=== PATIENT | male | born 1945 | race Asian ===

== ENCOUNTER 2025-05-23 14:07 | Inpatient (IN) | payer MEDICARE, OTHER ==
[~2025-05-23] VITALS: Ht 175.3 cm; Wt 63.0 kg
[2025-05-23 14:35] LABS: COVID AG,FIA SOURCE NPH
[2025-05-23 14:56] LABS: APPEARANCE,URINE CLEAR (CLEAR); GLUCOSE, URINE (UA) NEGATIVE (NEGATIVE); LEUKOCYTE ESTERASE ,URINE NEGATIVE (NEGATIVE); NITRATE,URINE NEGATIVE (NEGATIVE); OCCULT BLOOD,URINE TRACE (NEGATIVE); PH,URINE DRUG SCREEN 6.5 (5.0-8.0); SPECIFIC GRAVITIY, URINE 1.018 (1.003-1.030)
[2025-05-23 14:59] LABS: PLATELET COUNT (AUTO) 246 K/uL (150-450); RED BLOOD CELL COUNT(AUTO) 4.72 MIL/uL (4.50-5.90); RED CELL DISTRIBUTION WIDTH 14.7 % (11.5-14.5); WHITE BLOOD COUNT (AUTO) 6.9 K/uL (4.5-11.0)
[2025-05-23 15:02] LABS: AMPHET/METH SCREEN,URINE NEGATIVE (NEGATIVE); BARBITURATE SCREEN, URINE NEGATIVE (NEGATIVE); CANNABINOID SCREEN,URINE NEGATIVE (NEGATIVE); COCAINE SCREEN,URINE NEGATIVE (NEGATIVE); METHADONE SCREEN, URINE NEGATIVE (NEGATIVE)
[2025-05-23 15:05] LABS: ALCOHOL, URINE DRUG SCREEN NEGATIVE (NEGATIVE)
[2025-05-23 15:08] LABS: CALCIUM, TOTAL 8.9 mg/dL (8.8-10.5); CREATININE 1.19 mg/dL (0.60-1.30); GLOMERULAR FILTR. RATE CALC 59.0 mL/min (>60); GLUCOSE,RANDOM 96.0 mg/dL (70-110); SODIUM SERUM 141.0 mmol/L (136-145); UREA NITROGEN, BLOOD 18.0 mg/dL (7-18)
[2025-05-23 15:21] LABS: SQUAMOUS EPITHELIAL CELL,UR Few /LPF (None Seen)
[2025-05-23 15:52] LABS: SARS-COV2 (COVID) ANTIGEN,FIA Negative (Negative)
[2025-05-23] MEDS ORDERED: ZOLPIDEM TARTRATE 10 MG TABLET PO PRN (20:00)
[2025-05-24 02:34] VITALS: BP 162/88; PULSE 81; RESP 16; TEMP 98.1; O2SAT 99
[2025-05-24] MEDS ORDERED: PETROLATUM,WHITE 28 GM JELLY TP PRN (06:45)
[2025-05-24] MEDS ORDERED: MAG HYDROX/ALUMINUM HYD/SIMETH ES 30 ML SUSPENSION UDCUP PO PRN (06:45)
[2025-05-24] MEDS ORDERED: ONDANSETRON 4 MG TABLET PO PRN (06:45)
[2025-05-24] MEDS ORDERED: ACETAMINOPHEN 325 MG TABLET PO PRN (06:45)
[2025-05-24] MEDS ORDERED: LOPERAMIDE HCL 2 MG CAPSULE PO PRN (06:45)
[2025-05-24] MEDS ORDERED: ALBUTEROL SULFATE HFA 90 MCG/PUFF 8 GM INHALER IH PRN (06:45)
[2025-05-24] MEDS ORDERED: GuaiFENesin/D-METHORPHAN [SUGAR-FREE] 200-20MG/10 ML SYRUP UDCUP PO PRN (06:45)
[2025-05-24] MEDS ORDERED: IBUPROFEN 400 MG TABLET PO PRN (06:45)
[2025-05-24] MEDS: CARBIDOPA/LEVODOPA 25-100 MG TABLET PO SCH (08:19)
[2025-05-24 08:34] VITALS: BP 122/64; PULSE 54; RESP 18; TEMP 98.6; O2SAT 98
[2025-05-24 09:19] LABS: CHOL/HDL RATIO 3.2 (4.2-7.3); LDL CHOL (CALC.) 76.0 mg/dL (0-130)
[2025-05-24 11:05] VITALS: PULSE 68
[2025-05-24 20:19] VITALS: RESP 18
[2025-05-24] MEDS ORDERED: ROSUVASTATIN CALCIUM 10 MG TABLET PO SCH (21:00)
[2025-05-25 02:07] LABS: HEPATITIS C AB (EIA) Non Reactive (Non Reactive)
[2025-05-25] MEDS: ATORVASTATIN CALCIUM 40 MG TABLET PO SCH (08:40)
[2025-05-25 09:33] LABS: CHOL/HDL RATIO 3.0 (4.2-7.3); LDL CHOL (CALC.) 80.0 mg/dL (0-130)
[2025-05-25 10:18] VITALS: RESP 18
[2025-05-25 20:52] VITALS: BP 136/88; PULSE 76; RESP 18; TEMP 98.5
[2025-05-26 09:35] VITALS: BP 135/90; PULSE 82; RESP 18; TEMP 97.3; O2SAT 97
[2025-05-26 20:39] VITALS: BP 137/71; PULSE 64; RESP 18; TEMP 99; O2SAT 98
[2025-05-27 08:00] VITALS: BP 144/84; PULSE 64; RESP 16; TEMP 97.3; O2SAT 99
[2025-05-27] MEDS: DOCUSATE SODIUM 100 MG CAPSULE PO PRN (10:04)
[2025-05-27] MEDS: MAGNESIUM HYDROXIDE SUSPENSION 30 ML UDCUP PO PRN (14:16)
[2025-05-27 20:19] VITALS: BP 124/72; PULSE 71; RESP 16; TEMP 98.8; O2SAT 98
[2025-05-28 08:53] VITALS: BP 106/60; PULSE 64; RESP 17; TEMP 97.1; O2SAT 98
[2025-05-28 21:30] VITALS: BP 121/64; PULSE 62; RESP 17; TEMP 97.5; O2SAT 99
[2025-05-29 09:25] VITALS: BP 152/78; PULSE 64; RESP 18; TEMP 97.3; O2SAT 99
[2025-05-29 20:11] VITALS: BP 142/87; PULSE 83; RESP 18; TEMP 97.9; O2SAT 98
[2025-05-30 08:35] VITALS: BP 151/90; PULSE 87; RESP 18; TEMP 98.3; O2SAT 95
[2025-05-30 20:14] VITALS: BP 136/73; PULSE 78; RESP 18; TEMP 98; O2SAT 97
[2025-05-31 08:36] VITALS: BP 144/69; PULSE 64; RESP 18; TEMP 98.3; O2SAT 96
[2025-05-31 20:21] VITALS: BP 137/77; PULSE 68; RESP 17; TEMP 98.4; O2SAT 98
[2025-06-01 08:42] VITALS: BP 139/86; PULSE 75; RESP 18; TEMP 97.7; O2SAT 97
[2025-06-01 20:12] VITALS: BP 122/56; PULSE 70; RESP 18; TEMP 98.4; O2SAT 98
[2025-06-02 08:05] VITALS: BP 125/73; PULSE 74; RESP 16; TEMP 97.6; O2SAT 97
[2025-06-02] MEDS: BISACODYL 10 MG RECTAL RECTAL SUPPOSITORY PR PRN (17:51)
[2025-06-02 20:11] VITALS: BP 125/69; PULSE 74; RESP 17; TEMP 98.2; O2SAT 98
[2025-06-03 08:12] VITALS: BP 140/78; PULSE 78; RESP 18; TEMP 98.1; O2SAT 96
[2025-06-03 21:39] VITALS: BP 128/68; PULSE 71; RESP 16; TEMP 97.7; O2SAT 98
[2025-06-04 08:09] VITALS: BP 139/78; PULSE 79; RESP 18; TEMP 97.9; O2SAT 99
[2025-06-04 19:52] VITALS: BP 130/72; PULSE 70; RESP 17; TEMP 98; O2SAT 96
[2025-06-04 22:34] VITALS: BP 130/72; PULSE 70; RESP 17; TEMP 98; O2SAT 96
[2025-06-05 08:35] VITALS: BP 141/84; PULSE 76; RESP 16; TEMP 97.9; O2SAT 97
[2025-06-05 20:10] VITALS: BP 140/78; PULSE 63; RESP 17; TEMP 97.9; O2SAT 100
[2025-06-06 08:26] VITALS: BP 131/78; PULSE 78; RESP 17; TEMP 98.4; O2SAT 95
[2025-06-06 20:10] VITALS: BP 114/60; PULSE 62; RESP 16; TEMP 98.1; O2SAT 100
[2025-06-07 08:27] VITALS: BP 143/82; PULSE 65; RESP 18; TEMP 98.3; O2SAT 97
[2025-06-07 20:08] VITALS: BP 128/73; PULSE 62; RESP 18; TEMP 97.9; O2SAT 98
[2025-06-08 08:21] VITALS: BP 146/80; PULSE 78; RESP 16; TEMP 97.1; O2SAT 99
[2025-06-08 20:08] VITALS: BP 114/60; PULSE 60; RESP 17; TEMP 97.7; O2SAT 95
[2025-06-09 08:04] VITALS: BP 123/74; PULSE 73; RESP 18; TEMP 98.1; O2SAT 98
[2025-06-09] MEDS ORDERED: AMLO-257 PO (10:00)
[2025-06-09] MEDS ORDERED: CARB1TAB36 PO (10:01)
[2025-06-09] MEDS ORDERED: ATOR40TA28 PO (10:01)
== END 2025-06-09 13:39 | DRG 885 ==
LOC: EMS 14:07 → B2X 05-24 00:02
PROVIDERS: ADMIT Psychiatry & Neurology Child & Adolescent Psychiatry; ATTEND Psychiatry & Neurology Child & Adolescent Psychiatry
PROC: GZ58ZZZ Individual Psychotherapy, Cognitive-Behavioral (ICD-10-PCS; 2025-05-24)
PROC: GZ56ZZZ Individual Psychotherapy, Supportive (ICD-10-PCS; 2025-05-24)
PROC: GZHZZZZ Group Psychotherapy (ICD-10-PCS; principal; 2025-05-26)
DX: F29 Unspecified psychosis not due to a substance or known physiological condition (principal); R45.1 Restlessness and agitation; F02.818 Dementia in other diseases classified elsewhere, unspecified severity, with other behavioral disturbance; G20.A1 Parkinson's disease without dyskinesia, without mention of fluctuations; I10 Essential (primary) hypertension; Z20.822 Contact with and (suspected) exposure to COVID-19; F02.80 Dementia in other diseases classified elsewhere, unspecified severity, without behavioral disturbance, psychotic disturbance, mood disturbance, and anxiety; E78.5 Hyperlipidemia, unspecified; Z79.899 Other long term (current) drug therapy
CPT/HCPCS: 80048; 80061; 80307; 81001; 83036; 84443; 85025; 86803; 87340; 99285; G0480